=== PATIENT | female | born 1960 | race African-American/Black ===

== ENCOUNTER 2019-07-07 20:15 | Emergency (ER) | payer OTHER ==
[~2019-07-07] VITALS: Ht 165.1 cm; Wt 68.0 kg
--- NOTE | 2019-07-07 20:20 | NUR ---
ED Nurse Note: Patient walked into ER from home d/t cough lasting x3 weeks. patient aao x 4 and ambulatory. Patient no c/o pain. Patient stable upon assessment.
[2019-07-07 20:25] VITALS: BP 154/75
--- NOTE | 2019-07-07 20:38 | NUR ---
ED Nurse Note: ERMD at bedside
--- NOTE | 2019-07-07 20:43 | Emergency Room Report ---
History of Present Illness General Chief Complaint: Upper Respiratory Illness Source: Patient Present Illness HPI Patient 59-year-old female presents after increased cough and difficulty with breathing. She reports having multiple episodes of coughing over the past 3 weeks. This had worsened over the past few days. She denies being a smoker. Reports of increased nasal congestion. She is allergic penicillin.Denies prior cardiac history. She had been taking cough drops but not been taking any over- the-counter cough medications. Patient denies any fever. Allergies: Coded Allergies: PENICILLINS (Verified Allergy, Unknown, 07/07/19) Patient History Now: No Reviewed Nursing Documentation: PMH: Agreed; PSxH: Agreed Nursing Documentation-PMH Past Medical History: No Stated History Review of Systems All Other Systems: negative except mentioned in HPI Physical Exam Vital Signs Date Time Temp Pulse Resp B/P (MAP) Pulse Ox O2 Delivery O2 Flow Rate FiO2 07/07/19 20:21 98.1 80 14 151/64 (93) 98 Room Air Sp02 EP Interpretation: reviewed, normal General Appearance: normal inspection, well appearing, no apparent distress, alert, GCS 15, non-toxic Head: atraumatic ENT: normal ENT inspection, hearing grossly normal, normal voice, uvula midline , nasal congestion Neck: normal inspection, full range of motion, supple, no bony tend Respiratory: normal inspection, no respiratory distress, no retraction, no wheezing Cardiovascular #1: regular rate, rhythm, no edema Gastrointestinal: normal inspection, normal bowel sounds, non tender, soft, no guarding, no hernia Genitourinary: no CVA tenderness Musculoskeletal: normal inspection, back normal, normal range of motion Neurologic: alert, responsive, speech normal, normal inspection Psychiatric: normal inspection, judgement/insight normal, mood/affect normal Medical Decision Making Diagnostic Impression: Primary Impression: Pneumonitis ER Course Patient 59-year-old female presents after increased cough for the past 3 weeks. Differential diagnosis include was not limited to pneumonia, viral respiratory infection, allergic bronchitis, asthma, COPD among others. Chest x- ray 1 view interpreted by me showed normal cardiac size without any evidence of effusion or infiltrate. Patient's lung exam does have some slight increased bronchial breath sounds. Patient also additionally has a quite a bit of nasal congestion. Patient will be given a trial of oral antibiotics. She was advised to follow-up with her primary care physician for recheck. She is to return if worse Last Vital Signs Date Time Temp Pulse Resp B/P (MAP) Pulse Ox O2 Delivery O2 Flow Rate FiO2 07/07/19 20:21 98.1 80 14 151/64 (93) 98 Room Air Status: improved Disposition: HOME, SELF-CARE Condition: Stable Scripts Guaifenesin/Dextromethorphan (Guaifenesin Dm Syrup) 5 Ml Syrup 1 TSP ORAL Q8H, #118 ML 0 Refills Prov: Ruben Licona MD 07/07/19 Azithromycin* (ZITHROMAX*) 250 Mg Tablet 250 MG ORAL DAILY, #6 TAB 0 Refills Take two tables once daily for 1 day, then one tablet once daily for 4 days. Prov: Ruben Licona MD 07/07/19 Ruben Licona MD Jul 07, 2019 20:43
[2019-07-07] MEDS ORDERED: guaiFENesin 100mg/5ml Liq ud ORAL ONE (20:45)
--- NOTE | 2019-07-07 21:05 | NUR ---
ED Nurse Note: X-ray at bedside
[2019-07-07] MEDS ORDERED: ZITHROMAX250 MG ORAL (21:14)
[2019-07-07] MEDS ORDERED: GUAIFENESIN DM118 M1 ORAL (21:14)
[2019-07-07 21:22] VITALS: BP 152/85
--- NOTE | 2019-07-07 21:22 | NUR ---
ER DISCHARGE NOTE: Patient is cleared to be discharged per ERMD. Patient given discharge instructions and prescriptions, verbalized understanding. Patient aao x 4 and ambulatory upon discharge. Patient ID band removed. Patient stable upon discharge.
--- NOTE | 2019-07-08 12:43 | Diagnostic Imaging Report ---
Indication: Dyspnea Comparison: None A single view chest radiograph was obtained. Findings: Cardiomediastinal appearance is within normal limits for age. The lungs are clear. Pulmonary vascularity is appropriate. The diaphragmatic contour is smooth and costophrenic angles are sharp. No pleural effusions are identified. The bones are unremarkable. Impression: No acute findings
== END 2019-07-07 21:22 | disposition home or self-care (01) ==
LOC: EMR 20:45
DX: J18.9 Pneumonia, unspecified organism (principal); Z88.0 Allergy status to penicillin
CPT/HCPCS: 71045; Z7502; 99283